=== PATIENT | male | born 1985 | race Caucasian/White ===

== ENCOUNTER 2019-04-22 15:24 | Emergency (ER) | payer SELFPAY ==
[~2019-04-22] VITALS: Ht 177.8 cm; Wt 68.2 kg
[2019-04-22 15:27] VITALS: Ht 177.8 cm; Wt 68.2 kg
[2019-04-22 17:46] LABS: BASOPHILS 0.6 % (0-2); EOSINOPHILS 0.6 % (0-7); HEMATOCRIT 43.4 % (42.0-54.0); IMMATURE GRANULOCYTES 0.2 % (0-5); LYMPHOCYTES 24.4 % (15-50); MCH 29.5 pg (26.0-34.0); MCHC 34.6 g/dL (31.0-37.0); MCV 85.4 fL (80.0-100.0); MEAN PLATELET VOLUME 9.9 fL (7.4-10.4); MONOCYTES 7.1 % (2-11); NEUTROPHILS 67.1 % (40-80); PLATELET COUNT 269 10x3/uL (130-400); RBC 5.08 10x6/uL (4.20-6.10); RDW 13.5 % (11.5-14.5); WBC 9.5 10x3/uL (4.8-10.8)
[2019-04-22 19:05] LABS: APPEARANCE CLEAR (CLEAR); BILIRUBIN NEGATIVE (NEGATIVE); COLOR YELLOW (YELLOW); GLUCOSE NEGATIVE (NEGATIVE); KETONE NEGATIVE (NEGATIVE); NITRITE NEGATIVE (NEGATIVE); PROTEIN TRACE mg/dL (NEGATIVE); SPECIFIC GRAVITY 1.025 (1.005-1.020); UROBILINOGEN NORMAL (NORMAL)
[2019-04-22 19:27] LABS: UDS - AMPHET POSITIVE QUAL (NEGATIVE); UDS - BARB NEGATIVE QUAL (NEGATIVE); UDS - BENZO NEGATIVE QUAL (NEGATIVE); UDS - COCAINE NEGATIVE QUAL (NEGATIVE); UDS - OPIATE NEGATIVE QUAL (NEGATIVE); UDS - PCP NEGATIVE QUAL (NEGATIVE); UDS - THC NEGATIVE QUAL (NEGATIVE)
[2019-04-22 21:51] VITALS: BP 122/74
== END 2019-04-22 20:50 | disposition home or self-care (01) ==
LOC: D.ER 15:24
PROVIDERS: Emergency Medicine
DX: F41.9 Anxiety disorder, unspecified (principal); F32.9 Major depressive disorder, single episode, unspecified

== ENCOUNTER 2019-08-06 22:56 | Emergency (ER) | payer MEDICAID ==
[~2019-08-06] VITALS: Ht 177.8 cm; Wt 68.2 kg
[2019-08-06 22:59] VITALS: Ht 177.8 cm; Wt 68.2 kg
[2019-08-06] MEDS ORDERED: IBUPROFEN800 MG PO (23:39)
[2019-08-07 00:26] VITALS: BP 122/74
== END 2019-08-07 00:27 | disposition home or self-care (01) ==
LOC: D.ER 22:56
DX: M77.9 Enthesopathy, unspecified (principal); F17.200 Nicotine dependence, unspecified, uncomplicated